=== PATIENT | male | born 1975 | race Two or more races ===

== ENCOUNTER 2020-10-01 08:16 | Emergency (ER) | payer OTHER ==
[~2020-10-01] VITALS: Ht 165.1 cm; Wt 125.6 kg
[2020-10-01] MEDS ORDERED: AMOX-CLAV 875-1 EACH PO (16:08)
[2020-10-01] MEDS ORDERED: MOMETASONE FURO15 G2 TOP (16:08)
[2020-10-01] MEDS ORDERED: HYDROCHLOROTHIA25 MG PO (16:17)
== END 2020-10-01 16:20 | disposition home or self-care (01) ==
LOC: ER 08:16
DX: L03.116 Cellulitis of left lower limb (principal)